=== PATIENT | female | born 1970 | race Caucasian/White ===

== ENCOUNTER → 2022-10-25 | Outpatient (CLI) | payer BC, MEDICARE ==
--- NOTE | 2022-10-26 07:32 | MM ---
Reason for Exam: Screening (asymptomatic). Last mammogram was performed 2 year(s) and 5 month(s) ago. Patient History: Menarche at age 14. First Full-Term at age 20. Right ovary removed at age 32. Postmenopausal. Patient has history of breast feeding. 05/30/2020, Bilateral Reduction. Sister had breast cancer, age 45. Risk Values: Lily 5 year model risk: 1.9%. NCI Lifetime model risk: 15.8%. Prior Study Comparison: 05/07/2020 Bilateral MG 3D screening mammo w/cad, [facility]. Tissue Density: The breast tissue is heterogeneously dense. This may lower the sensitivity of mammography. Findings: Analyzed By CAD. There are a few tiny benign-appearing round calcifications scattered throughout the bilateral breasts. Benign-appearing bilateral axillary lymph nodes are seen. There is no suspicious new group of microcalcifications or new suspicious mass in either breast. Overall Assessment: Incomplete: need additional imaging evaluation, BI-RAD 0 Management: Diagnostic Breast Ultrasound of the right breast. Targeted ultrasound due to focal tenderness 8:00 position right breast. Electronically signed and approved by: Mike Nelson M.D.
== END | disposition home or self-care (01) ==
LOC: RADMAMWWP 16:22
PROVIDERS: ATTEND Family Medicine
DX: Z12.31 Encounter for screening mammogram for malignant neoplasm of breast (principal); Z78.0 Asymptomatic menopausal state; Z80.3 Family history of malignant neoplasm of breast
CPT/HCPCS: 77063; 77067

== ENCOUNTER → 2022-10-27 | Outpatient (CLI) | payer BC, MEDICARE ==
--- NOTE | 2022-10-27 07:49 | USB ---
Reason for Exam: Clinical finding. Patient History: Menarche at age 14. First Full-Term at age 20. Right ovary removed at age 32. Postmenopausal. Patient has history of breast feeding. 05/30/2020, Bilateral Reduction. Sister had breast cancer, age 45. Risk Values: Lily 5 year model risk: 1.9%. NCI Lifetime model risk: 15.8%. Technique: Method: Targeted. Prior Study Comparison: 12/16/2004 Bilateral Diagnostic Mammogram, [facility]. 12/16/2004 Right Diagnostic Ultrasound, [facility]. 05/07/2020 Bilateral MG 3D screening mammo w/cad, [facility]. 10/25/2022 Bilateral MG 3D screening mammo w/cad, [facility]. Findings: The lower outer quadrant of the right breast, the axilla of the right breast and the retroareolar of the right breast were scanned. Ultrasound right breast lower outer quadrant 6:00 to 9:00 including the subareolar region and axilla. No solid or cystic lesion is seen. No axillary lymphadenopathy. Overall Assessment: Negative, BI-RAD 1 Management: Screening Mammogram of both breasts in 1 year. Further clinical management of patient's right breast pain. Patient should continue monthly self breast exams. Results were given to the patient verbally at the time of exam. Electronically signed and approved by: Sarah Nicholas M.D. Radiologist
== END | disposition home or self-care (01) ==
LOC: RADUSWWP 06:46
PROVIDERS: ATTEND Family Medicine
DX: R92.8 Other abnormal and inconclusive findings on diagnostic imaging of breast (principal); Z78.0 Asymptomatic menopausal state; Z80.3 Family history of malignant neoplasm of breast